=== PATIENT | male | born 1955 | race Native Hawaiian/Other Pacific Islander ===

== ENCOUNTER 2016-11-24 22:01 | Emergency (ER) | payer OTHER ==
[~2016-11-24] VITALS: Ht 182.9 cm; Wt 111.1 kg
[2016-11-24 23:05] LABS: PLATELET COUNT 163 K/uL (142-355)
[2016-11-24 23:10] LABS: POTASSIUM 3.7 mmol/L (3.6-5.2); SODIUM 139 mmol/L (136-145)
[2016-11-24 23:53] VITALS: BP 138/83; TEMP 98.3
== END 2016-11-25 00:05 | disposition home or self-care (01) ==
LOC: ED 22:01
PROVIDERS: Family Medicine
DX: N20.0 Calculus of kidney (principal); N23 Unspecified renal colic
CPT/HCPCS: 36415; 80053; 81000; 85027; 96360; 96374; 96375; 99284; J1885